=== PATIENT | male | born 1960 | race African-American/Black ===

== ENCOUNTER 2021-11-03 15:24 | Emergency (ER) | payer OTHER ==
[~2021-11-03] VITALS: Ht 175.3 cm; Wt 77.3 kg
[2021-11-03] MEDS ORDERED: RISP2TAB45 PO (16:19)
[2021-11-03] MEDS ORDERED: BENZ0.5T49 PO (16:26)
[2021-11-03] MEDS ORDERED: PERMETHRIN 5% 60 GM CREAM TP ONE (18:30)
[2021-11-03 19:13] VITALS: BP 131/73
== END 2021-11-03 23:07 | disposition home or self-care (01) ==
LOC: EMS 15:27
DX: B86 Scabies (principal); F20.9 Schizophrenia, unspecified
CPT/HCPCS: 99282; Z7502; Z7610